=== PATIENT | female | born 1995 | race Caucasian/White ===

== ENCOUNTER 2021-07-04 15:33 | Emergency (ER) | payer OTHER, MEDICAID, SELFPAY ==
[2021-07-04] VITALS (15 sets, daily range): BP systolic 112–172; BP diastolic 53–97; PULSE 68–129; RESP 14–163; TEMP 36.9; O2SAT 95–100; BMI 36.4
--- NOTE | 2021-07-04 15:45 | ED.CHESTPAIN ---
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 She states it is worse when she moves and when she takes a deep breath, radiates only across the front of her chest and starts on the right and goes to the left. It makes her feel short of breath and anxious. She is dizzy and lightheaded. She denies any history of cancer, blood clots or recent long-distance travel. She states she has been having trouble with pain in her left back that goes into her left leg for quite some time and has been seen and evaluated by vascular surgery and has an appointment tomorrow, but has been told she needs a stent. This pain is persistent and consistent with how it has been for quite some time Related Data Home Medications Medication Instructions Recorded Confirmed albuterol sulfate 90 mcg/actuation 2 puff INHALATION Q4-6H PRN 06/12/21 06/12/21 aerosol inhaler fluticasone propionate 220 1 puff INHALATION BID 06/12/21 06/12/21 mcg/actuation HFA aerosol inhaler (Flovent HFA) furosemide 20 mg tablet 20 mg PO DAILY 06/12/21 meloxicam 15 mg tablet 15 mg PO DAILY 06/12/21 potassium chloride 10 mEq 10 meq PO DAILY 06/12/21 06/12/21 capsule,extended release sertraline 100 mg tablet 100 mg PO DAILY 06/12/21 Allergies Allergy/AdvReac Type Severity Reaction Status Date / Time ciprofloxacin Allergy Severe Anaphylaxis Verified 07/04/21 15:52 Penicillins Allergy Severe anaphylaxis Verified 07/04/21 15:52 duloxetine AdvReac Severe neurologica Verified 07/04/21 15:52 l Review of Systems <Devon Casas DO - Last Filed: 07/05/21 08:35> Review of Systems Narrative: GENERAL: Denies chills, fatigue, malaise, fever, sweats. HEENT: Denies sinus pain, ear pain, sore throat, difficulty swallowing, dizziness. RESPIRATORY: Denies dyspnea, cough, wheezing, hemoptysis, sputum. CARDIOVASCULAR: See HPI GASTROINTESTINAL: Denies nausea, vomiting, abdominal pain, diarrhea, constipation, melena. : Denies dysuria, frequency, incontinence, hematuria, urinary retention. MUSCULOSKELETAL: CH SKIN: Denies rash, skin lesions, or other NEUROLOGIC: Denies weakness, headache, numbness, change in speech, confusion, seizures, incoordination. PSYCHIATRIC: No concerning psychosocial issues. 12 point review of systems is negative except for those stated above Patient History <Devon Casas DO - Last Filed: 07/05/21 08:35> Medical History Eustachian tube dysfunction Social History Smoking Status: Current every day smoker Smoking Status: Current every day smoker Exam <Devon Casas DO - Last Filed: 07/05/21 08:35> Narrative Exam Narrative: GENERAL: [25] year old patient appears stated age. Well-developed patient, in mild distress. Anxious, poor historian HEAD: Atraumatic. Normocephalic. EYES: Pupils equal round and reactive. Extraocular motions intact. No scleral icterus. No injection or drainage. ENT: Nose without bleeding, purulent drainage. Throat without erythema, tonsillar hypertrophy or exudate. Airway patent. NECK: Trachea midline. Non tender CARDIOVASCULAR: Regular rate and rhythm without murmurs, gallops, or rubs. Minimally increased symptoms with palpation RESPIRATORY: Clear to auscultation. Breath sounds equal bilaterally. No wheezes, rales, or rhonchi. GASTROINTESTINAL: Abdomen soft, non-tender, nondistended. EXTREMITIES: No edema or joint tenderness. BACK: Nontender without deformity or crepitance. No flank tenderness. NEURO: AOx3. SKIN: No rash or erythema of visible areas Initial Vital Signs Initial Vital Signs: Vital Signs Temperature 98.5 F 07/04/21 15:47 Pulse Rate 82 07/04/21 15:47 Respiratory Rate 18 07/04/21 15:47 Blood Pressure 157/80 H 07/04/21 15:47 Pulse Oximetry 95 07/04/21 15:47 <William Wisdom DO - Last Filed: 07/04/21 21:19> Initial Vital Signs Initial Vital Signs: Vital Signs Temperature 98.5 F 07/04/21 15:47 Pulse Rate 82 07/04/21 15:47 Respiratory Rate 18 07/04/21 15:47 Blood Pressure 157/80 H 07/04/21 15:47 Pulse Oximetry 95 07/04/21 15:47 Course <Devon Casas DO - Last Filed: 07/05/21 08:35> Orders Ordered: Discontinued Medications Diphenhydramine HCl (Diphenhydramine 50 Mg/Ml Vial) 25 mg IV NOW ONE Stop: 07/04/21 19:01 Last Admin: 07/04/21 19:07 Dose: 25 mg Documented by: JOAQUINA Epinephrine HCl (Epinephrine 1 Mg/Ml) 0.5 mg IM NOW ONE Stop: 07/04/21 19:03 Last Admin: 07/04/21 19:08 Dose: 0.5 mg Documented by: JOAQUINA Hydromorphone HCl (Hydromorphone 0.5 Mg Inj) 0.5 mg IV NOW ONE Stop: 07/04/21 16:59 Last Admin: 07/04/21 17:39 Dose: 0.5 mg Documented by: JOAQUINA Sodium Chloride (Normal Saline 0.9%) 1,000 mls @ 125 mls/hr IV CONT OPAL Last Infusion: 07/04/21 21:28 Dose: 0 mls/hr Documented by: Admin: 07/04/21 16:58 Dose: 125 mls/hr Documented by: ANAYA Ketorolac Tromethamine (Ketorolac 30 Mg/Ml Vial) 15 mg IV NOW ONE Stop: 07/04/21 18:40 Last Admin: 07/04/21 18:58 Dose: 15 mg Documented by: JOAQUINA Methylprednisolone (Methylprednisolone 125 Mg/2 Ml Vial) 125 mg IV NOW ONE Stop: 07/04/21 19:01 Last Admin: 07/04/21 19:08 Dose: 125 mg Documented by: JOAQUINA Vital Signs Vital signs: Vital Signs - 8 hr 07/04/21 15:47 07/04/21 16:16 07/04/21 16:30 Temperature 98.5 F Pulse Rate 82 68 74 Respiratory Rate 18 30 H 29 H Blood Pressure 157/80 H Pulse Oximetry 95 100 99 07/04/21 17:00 07/04/21 17:03 07/04/21 17:30 Temperature Pulse Rate 118 H 69 83 Respiratory Rate 31 H 32 H Blood Pressure 136/81 146/89 H Pulse Oximetry 100 99 07/04/21 18:00 07/04/21 18:30 07/04/21 19:00 Temperature Pulse Rate 73 81 123 H Respiratory Rate 15 14 163 H Blood Pressure 134/75 133/74 Pulse Oximetry 97 98 98 07/04/21 19:01 07/04/21 19:30 07/04/21 19:31 Temperature Pulse Rate 129 H 89 95 H Respiratory Rate 43 H 28 H 29 H Blood Pressure 172/97 H 129/62 Pulse Oximetry 97 96 97 07/04/21 20:00 07/04/21 20:30 Temperature Pulse Rate 95 H 89 Respiratory Rate 23 21 Blood Pressure 132/60 112/53 L Pulse Oximetry 96 95 <William Wisdom DO - Last Filed: 07/04/21 21:19> Orders Ordered: Discontinued Medications Diphenhydramine HCl (Diphenhydramine 50 Mg/Ml Vial) 25 mg IV NOW ONE Stop: 07/04/21 19:01 Last Admin: 07/04/21 19:07 Dose: 25 mg Documented by: JOAQUINA Epinephrine HCl (Epinephrine 1 Mg/Ml) 0.5 mg IM NOW ONE Stop: 07/04/21 19:03 Last Admin: 07/04/21 19:08 Dose: 0.5 mg Documented by: JOAQUINA Hydromorphone HCl (Hydromorphone 0.5 Mg Inj) 0.5 mg IV NOW ONE Stop: 07/04/21 16:59 Last Admin: 07/04/21 17:39 Dose: 0.5 mg Documented by: JOAQUINA Sodium Chloride (Normal Saline 0.9%) 1,000 mls @ 125 mls/hr IV CONT OPAL Last Infusion: 07/04/21 21:28 Dose: 0 mls/hr Documented by: Admin: 07/04/21 16:58 Dose: 125 mls/hr Documented by: ANAYA Ketorolac Tromethamine (Ketorolac 30 Mg/Ml Vial) 15 mg IV NOW ONE Stop: 07/04/21 18:40 Last Admin: 07/04/21 18:58 Dose: 15 mg Documented by: JOAQUINA Methylprednisolone (Methylprednisolone 125 Mg/2 Ml Vial) 125 mg IV NOW ONE Stop: 07/04/21 19:01 Last Admin: 07/04/21 19:08 Dose: 125 mg Documented by: JOAQUINA Vital Signs Vital signs: Vital Signs - 8 hr 07/04/21 15:47 07/04/21 16:16 07/04/21 16:30 Temperature 98.5 F Pulse Rate 82 68 74 Respiratory Rate 18 30 H 29 H Blood Pressure 157/80 H Pulse Oximetry 95 100 99 07/04/21 17:00 07/04/21 17:03 07/04/21 17:30 Temperature Pulse Rate 118 H 69 83 Respiratory Rate 31 H 32 H Blood Pressure 136/81 146/89 H Pulse Oximetry 100 99 07/04/21 18:00 07/04/21 18:30 07/04/21 19:00 Temperature Pulse Rate 73 81 123 H Respiratory Rate 15 14 163 H Blood Pressure 134/75 133/74 Pulse Oximetry 97 98 98 07/04/21 19:01 07/04/21 19:30 07/04/21 19:31 Temperature Pulse Rate 129 H 89 95 H Respiratory Rate 43 H 28 H 29 H Blood Pressure 172/97 H 129/62 Pulse Oximetry 97 96 97 07/04/21 20:00 07/04/21 20:30 Temperature Pulse Rate 95 H 89 Respiratory Rate 23 21 Blood Pressure 132/60 112/53 L Pulse Oximetry 96 95 MDM - Chest Pain <Devon Casas DO - Last Filed: 07/05/21 08:35> Lab Data Result diagrams: 07/04/21 15:53 07/04/21 15:53 Labs: Lab Results 07/04/21 07/04/21 07/04/21 Range/Units 15:53 15:53 15:53 WBC 9.4 (4.5-11.0) X10^3/uL RBC 4.43 (4.0-5.2) X10^6/uL Hgb 13.4 (12.0-16.0) g/dL Hct 38.5 (36-46) % MCV 87.1 (80-100) fL MCH 30.2 (26-34) PG MCHC 34.7 (30-36) % RDW 13.4 (11.6-14.8) % Plt Count 353 (150-400) X10^3/uL Neut % (Auto) 57.2 (50-75) % Lymph % (Auto) 28.2 (25-40) % [place] % (Auto) 8.0 (3-14) % Eos % (Auto) 5.3 H (2-4) % Baso % (Auto) 1.3 (0-2) % Neut # (Auto) 5400 (3892-9818) /uL Lymph # (Auto) 2700 (5963-1606) /uL [place] # (Auto) 800 (0-900) /uL Eos # (Auto) 500 H (0-450) /uL Baso # (Auto) 100 (0-100) /uL PT 10.2 (10.1-12.7) SECONDS INR 0.9 (0.9-1.3) APTT 32 (26.4-36.2) SECONDS Sodium 138 (137-145) mmol/L Potassium 4.2 (3.4-5.1) mmol/L Chloride 105 (98-107) mmol/L Carbon Dioxide 25 (22-32) mmol/L BUN 14 (7-17) mg/dL Creatinine 0.76 (0.52-1.04) mg/dL Estimated GFR > 60.0 (>60) mL/min BUN/Creatinine Ratio 18.4 (6-22) Glucose 90 (70-100) mg/dL Lactate (0.7-2.1) mmol/L Calcium 9.3 (8.4-10.2) mg/dL Magnesium 2.1 (1.6-2.3) mg/dL Total Bilirubin 0.3 (0.2-1.3) mg/dL AST 30 (14-36) IU/L ALT 21 (<35) IU/L Alkaline Phosphatase 87 (38-126) U/L Total Creatine Kinase 133 (30-135) U/L CK-MB (CK-2) 1.11 (<2.37) ng/mL CK-MB (CK-2) Rel Index 0.8 L (1.5-5.0) % Troponin I < 0.012 (0.01-0.034) ng/mL Total Protein 7.6 (6.3-8.2) g/dL Albumin 4.4 (3.5-5.0) g/dL Globulin 3.2 (1.7-4.1) g/dL Albumin/Globulin Ratio 1.4 (1.0-2.8) Lipase 77 (23-300) U/L 07/04/ Range/Units 15:53 WBC (4.5-11.0) X10^3/uL RBC (4.0-5.2) X10^6/uL Hgb (12.0-16.0) g/dL Hct (36-46) % MCV (80-100) fL MCH (26-34) PG MCHC (30-36) % RDW (11.6-14.8) % Plt Count (150-400) X10^3/uL Neut % (Auto) (50-75) % Lymph % (Auto) (25-40) % [place] % (Auto) (3-14) % Eos % (Auto) (2-4) % Baso % (Auto) (0-2) % Neut # (Auto) (3054-7223) /uL Lymph # (Auto) (5125-3867) /uL [place] # (Auto) (0-900) /uL Eos # (Auto) (0-450) /uL Baso # (Auto) (0-100) /uL PT (10.1-12.7) SECONDS INR (0.9-1.3) APTT (26.4-36.2) SECONDS Sodium (137-145) mmol/L Potassium (3.4-5.1) mmol/L Chloride (98-107) mmol/L Carbon Dioxide (22-32) mmol/L BUN (7-17) mg/dL Creatinine (0.52-1.04) mg/dL Estimated GFR (>60) mL/min BUN/Creatinine Ratio (6-22) Glucose (70-100) mg/dL Lactate 1.0 (0.7-2.1) mmol/L Calcium (8.4-10.2) mg/dL Magnesium (1.6-2.3) mg/dL Total Bilirubin (0.2-1.3) mg/dL AST (14-36) IU/L ALT (<35) IU/L Alkaline Phosphatase (38-126) U/L Total Creatine Kinase (30-135) U/L CK-MB (CK-2) (<2.37) ng/mL CK-MB (CK-2) Rel Index (1.5-5.0) % Troponin I (0.01-0.034) ng/mL Total Protein (6.3-8.2) g/dL Albumin (3.5-5.0) g/dL Globulin (1.7-4.1) g/dL Albumin/Globulin Ratio (1.0-2.8) Lipase (23-300) U/L <William Wisdom, DO - Last Filed: 07/04/21 21:19> Lab Data Labs: Lab Results 07/04/21 07/04/21 07/04/21 Range/Units 15:53 15:53 15:53 WBC 9.4 (4.5-11.0) X10^3/uL RBC 4.43 (4.0-5.2) X10^6/uL Hgb 13.4 (12.0-16.0) g/dL Hct 38.5 (36-46) % MCV 87.1 (80-100) fL MCH 30.2 (26-34) PG MCHC 34.7 (30-36) % RDW 13.4 (11.6-14.8) % Plt Count 353 (150-400) X10^3/uL Neut % (Auto) 57.2 (50-75) % Lymph % (Auto) 28.2 (25-40) % [place] % (Auto) 8.0 (3-14) % Eos % (Auto) 5.3 H (2-4) % Baso % (Auto) 1.3 (0-2) % Neut # (Auto) 5400 (0601-0769) /uL Lymph # (Auto) 2700 (1109-9809) /uL [place] # (Auto) 800 (0-900) /uL Eos # (Auto) 500 H (0-450) /uL Baso # (Auto) 100 (0-100) /uL PT 10.2 (10.1-12.7) SECONDS INR 0.9 (0.9-1.3) APTT 32 (26.4-36.2) SECONDS Sodium 138 (137-145) mmol/L Potassium 4.2 (3.4-5.1) mmol/L Chloride 105 (98-107) mmol/L Carbon Dioxide 25 (22-32) mmol/L BUN 14 (7-17) mg/dL Creatinine 0.76 (0.52-1.04) mg/dL Estimated GFR > 60.0 (>60) mL/min BUN/Creatinine Ratio 18.4 (6-22) Glucose 90 (70-100) mg/dL Lactate (0.7-2.1) mmol/L Calcium 9.3 (8.4-10.2) mg/dL Magnesium 2.1 (1.6-2.3) mg/dL Total Bilirubin 0.3 (0.2-1.3) mg/dL AST 30 (14-36) IU/L ALT 21 (<35) IU/L Alkaline Phosphatase 87 (38-126) U/L Total Creatine Kinase 133 (30-135) U/L CK-MB (CK-2) 1.11 (<2.37) ng/mL CK-MB (CK-2) Rel Index 0.8 L (1.5-5.0) % Troponin I < 0.012 (0.01-0.034) ng/mL Total Protein 7.6 (6.3-8.2) g/dL Albumin 4.4 (3.5-5.0) g/dL Globulin 3.2 (1.7-4.1) g/dL Albumin/Globulin Ratio 1.4 (1.0-2.8) Lipase 77 (23-300) U/L // Range/Units 15:53 WBC (4.5-11.0) X10^3/uL RBC (4.0-5.2) X10^6/uL Hgb (12.0-16.0) g/dL Hct (36-46) % MCV (80-100) fL MCH (26-34) PG MCHC (30-36) % RDW (11.6-14.8) % Plt Count (150-400) X10^3/uL Neut % (Auto) (50-75) % Lymph % (Auto) (25-40) % [place] % (Auto) (3-14) % Eos % (Auto) (2-4) % Baso % (Auto) (0-2) % Neut # (Auto) (4859-2403) /uL Lymph # (Auto) (1687-3945) /uL [place] # (Auto) (0-900) /uL Eos # (Auto) (0-450) /uL Baso # (Auto) (0-100) /uL PT (10.1-12.7) SECONDS INR (0.9-1.3) APTT (26.4-36.2) SECONDS Sodium (137-145) mmol/L Potassium (3.4-5.1) mmol/L Chloride (98-107) mmol/L Carbon Dioxide (22-32) mmol/L BUN (7-17) mg/dL Creatinine (0.52-1.04) mg/dL Estimated GFR (>60) mL/min BUN/Creatinine Ratio (6-22) Glucose (70-100) mg/dL Lactate 1.0 (0.7-2.1) mmol/L Calcium (8.4-10.2) mg/dL Magnesium (1.6-2.3) mg/dL Total Bilirubin (0.2-1.3) mg/dL AST (14-36) IU/L ALT (<35) IU/L Alkaline Phosphatase (38-126) U/L Total Creatine Kinase (30-135) U/L CK-MB (CK-2) (<2.37) ng/mL CK-MB (CK-2) Rel Index (1.5-5.0) % Troponin I (0.01-0.034) ng/mL Total Protein (6.3-8.2) g/dL Albumin (3.5-5.0) g/dL Globulin (1.7-4.1) g/dL Albumin/Globulin Ratio (1.0-2.8) Lipase (23-300) U/L Imaging Data CT angio: Radiologist's Impression: [address] [address] [address] Scan Report Signed Patient: Queta eHrron MR#: [id number] : 1995 Acct:[id number] Age/Sex: 25 / F Date of Service: 07/04/21 Loc: ED Accession Number: [id number] ?? Procedure: CT angio abd aorta runoff Ordering Provider: Eugene,Devon D.O. PROCEDURE:? CT ANGIO ABD AORTA RUNOFF ? INDICATIONS:? severe R leg pain, known vascular disease ? TECHNIQUE:? After the administration of intravenous contrast, 2.5 mm sections acquired from T12 to the feet, with optional delayed image acquisition from the knees to the feet.? 3-dimensional maximum intensity projection (MIP) coronal and sagittal reformats, and/or 3-dimensional volume rendering reformatting was then performed.? For radiation dose reduction, the following was used:? automated exposure control.? ? COMPARISON:? None. ? FINDINGS:? Image quality:? Excellent.? ? Image quality:? Excellent.? ? Lung bases:? Lung bases are clear.? Heart size is normal. ? Solid organs:? Liver: The liver has no mass or intrahepatic biliary ductal dilatation. The portal vein and hepatic veins are patent. Biliary: The gallbladder has no gallstones, pericholecystic fluid, gallbladder wall thickening, or surrounding inflammatory change. Pancreas: The pancreas has no mass or ductal dilatation. There is no surrounding inflammation. Spleen: Normal size. There are no masses. Adrenals: No hypertrophy or nodules. Kidneys: No obstructive calculus or hydronephrosis.? No solid mass. No cystic mass. ? Peritoneum and bowel:? The distal esophagus and stomach are normal.? The small bowel has a normal caliber and appearance. The terminal ileum is normal. The large bowel has a normal caliber and appearance.? The appendix is normal. No free fluid or air.? ? Nodes and vessels:? No retroperitoneal or mesenteric adenopathy by size criteria.? Aorta and inferior vena cava are normal in size.? ? Miscellaneous:? No abdominal wall mass or hernia. ? PELVIS:? Genitourinary:? The bladder has no wall thickening or mass. No bladder calcifications. ? Miscellaneous:? No inguinal hernias or adenopathy.? ? Bones:? Mild disc bulge of L5-S1 with no significant foraminal or central canal stenosis identified.? No suspicious bony lesions.? No vertebral body compression fractures.? ? Abdominal aorta:? The aorta has a normal caliber with no atherosclerotic disease, no aneurysm, and no dissection.? The mesenteric arteries and renal arteries are widely patent.? Both common, internal, and external iliac arteries are patent.? ? Right lower extremity:? The right CASTING MACHINE OPERATOR, PFA, SFA, and popliteal artery are patent.? The infrapopliteal arteries are not well opacified due to bolus timing but are grossly patent. ? Left lower extremity:? The left CASTING MACHINE OPERATOR, PFA, SFA, and popliteal artery are patent.? The infrapopliteal arteries are not well opacified due to bolus timing but are grossly patent patent. ? IMPRESSION:? Normal CT angiogram of the aorta and bilateral lower extremities. ? ? Dictated by: Slick Dorman M.D. on 07/04/2021 at 19:26 ? ? Approved by: Slick Dorman M.D. on 07/04/2021 at 19:34?? MDM Narrative Medical decision making narrative: Dr Wisdom: Received turned over. Reviewed patient's history and physical and labs. Ultrasound shows no signs of DVT. CTA shows no issues with vasculature of her bilateral lower extremities. When she returned from the CT scan with contrast she ran her call [place]. She was having problems breathing. Was never hypoxic. Her lungs were clear. She was tachypneic and also tachycardic. She states that she was having some nausea. She has never had allergic reaction in the past to contrast dye. She has had multiple CT scans in the past. She was given Benadryl and Solu-Medrol and also epinephrine. The seem to help her symptoms. There is also a very high chance that this was anxiety induced is well. I had a discussion with her regarding this. I informed her that there is the potential that she had a reaction to the contrast dye. She expressed understanding of this. There does not appear to be any emergent condition. No signs of infection. No signs of DVT. No signs of arterial occlusion. No signs of fracture. Will discharge home. She was given strict return precautions and follow-up instructions. She expressed understanding and agreement. <William Wisdom, DO - Last Filed: 07/04/21 21:19> Critical Care Time Critical Care Time: Yes Total Critical Care Time: 35 Attestation: The high probability of a clinically significant, sudden or life threatening deterioration of the respiratory, cardiovascular system(s) required my full and direct attention, intervention and personal management. The aggregate critical care time was 35 minutes. This time is in addition to time spent performing reported procedures but includes the following: [] Data Review and interpretation [x] Patient assessment and monitoring of vital signs [x] Documentation [x] Medication orders and management Discharge Plan Departure Patient Disposition: Home Clinical Impression: Pain in right leg, Allergic reaction Activity Restrictions/Additional Instructions: Although we cannot be 100% sure I do have some concern that you had allergic reaction to the IV contrast dye that you were given with your CT scan today. If you ever received a CT scan in the future please inform the provider that she have had a reaction in the past that you can be premedicated. Continue to keep all of her scheduled medical appointments especially the appointment with your vascular surgeon tomorrow. Contact your primary doctor for a follow-up. Return to the emergency department for any new or worsening symptoms Prescriptions: No Action meloxicam 15 mg tablet 15 mg PO DAILY RF: 0 sertraline 100 mg tablet 100 mg PO DAILY RF: 0 furosemide 20 mg tablet 20 mg PO DAILY RF: 0 albuterol sulfate 90 mcg/actuation HFA aerosol inhaler 2 puff inhalation Q4-6H PRNRF: 0 Flovent HFA 220 mcg/actuation HFA aerosol inhaler 1 puff inhalation BID RF: 0 potassium chloride 10 mEq capsule, extended release 10 meq PO DAILY RF: 0 Referrals: Miscellaneous,Doctor, [Primary Care Provider] -
[2021-07-04 15:59] LABS: Add Manual Diff / Slide Review NO; Basophils Absolute Auto 100 /uL (0-100); Basophils Percent Auto 1.3 % (0-2); Eosinophils Absolute Auto 500 /uL (0-450); Eosinophils Percent Auto 5.3 % (2-4); Hematocrit 38.5 % (36-46); Hemoglobin 13.4 g/dL (12.0-16.0); Lymphocytes Absolute Auto 2700 /uL (1100-4500); Lymphocytes Percent Auto 28.2 % (25-40); Mean Corpuscular HGB Conc 34.7 % (30-36); Mean Corpuscular Hemoglobin 30.2 PG (26-34); Mean Corpuscular Volume 87.1 fL (80-100); Monocytes Absolute Auto 800 /uL (0-900); Neutrophils Absolute Auto 5400 /uL (1500-7000); Neutrophils Percent Auto 57.2 % (50-75); Platelet Count 353 X10^3/uL (150-400); Red Blood Cell Count 4.43 X10^6/uL (4.0-5.2); Red Cell Distribution Width 13.4 % (11.6-14.8); White Blood Cell Count 9.4 X10^3/uL (4.5-11.0)
[2021-07-04 16:07] LABS: INR 0.9 (0.9-1.3); Prothrombin Time 10.2 SECONDS (10.1-12.7)
[2021-07-04 16:10] LABS: PTT Partial Thromboplastin Tim 32 SECONDS (26.4-36.2)
[2021-07-04 16:13] LABS: Alanine Aminotransferase 21 IU/L (<35); Albumin 4.4 g/dL (3.5-5.0); Albumin Globulin Ratio 1.4 (1.0-2.8); Alkaline Phosphatase 87 U/L (38-126); Aspartate Aminotransferase 30 IU/L (14-36); BUN Creatinine Ratio 18.4 (6-22); Bilirubin Total 0.3 mg/dL (0.2-1.3); Blood Urea Nitrogen 14 mg/dL (7-17); Calcium 9.3 mg/dL (8.4-10.2); Carbon Dioxide 25 mmol/L (22-32); Chloride 105 mmol/L (98-107); Creatine Kinase 133 U/L (30-135); Estimated Glomerular Filt Rate > 60.0 mL/min (>60); Globulin 3.2 g/dL (1.7-4.1); Glucose 90 mg/dL (70-100); HEMOLYSIS 20 (0-50); Lipase 77 U/L (23-300); Magnesium 2.1 mg/dL (1.6-2.3); Potassium 4.2 mmol/L (3.4-5.1); Sodium 138 mmol/L (137-145); Total Protein 7.6 g/dL (6.3-8.2)
[2021-07-04 16:24] LABS: Troponin I < 0.012 ng/mL (0.01-0.034)
[2021-07-04 16:27] LABS: CKMB % Relative Index 0.8 % (1.5-5.0); Creatine Kinase MB 1.11 ng/mL (<2.37)
[2021-07-04] MEDS: SODIUM CHLORIDE 0.9% 1,000 ML 125 ML IV (16:58)
--- NOTE | 2021-07-04 16:58 | DI.US.S_ITS ---
PROCEDURE: US PERIPH VENOUS LOW EXTREM RT INDICATIONS: MEDIAL THIGH PAIN TECHNIQUE: Real-time imaging, as well as color and pulse Doppler interrogation, were performed of the lower extremity deep veins from the inguinal ligament to the popliteal fossa. COMPARISON: None. FINDINGS: The common femoral, femoral and popliteal veins are normally compressible, and free of intraluminal thrombus. Color and pulse Doppler demonstrate normal phasic intraluminal flow. There is normal augmentation response to distal compression maneuver. IMPRESSION: Negative for deep venous thrombosis. Dictated by: Jose G Chiu M.D. on 07/04/2021 at 16:38 Approved by: Jose G Chiu M.D. on 07/04/2021 at 16:38
[2021-07-04] MEDS: HYDROMORPHONE 0.5 MG INJ IV (17:39)
--- NOTE | 2021-07-04 18:29 | DI.CT.S_ITS ---
PROCEDURE: CT ANGIO ABD AORTA RUNOFF INDICATIONS: severe R leg pain, known vascular disease TECHNIQUE: After the administration of intravenous contrast, 2.5 mm sections acquired from T12 to the feet, with optional delayed image acquisition from the knees to the feet. 3-dimensional maximum intensity projection (MIP) coronal and sagittal reformats, and/or 3-dimensional volume rendering reformatting was then performed. For radiation dose reduction, the following was used: automated exposure control. COMPARISON: None. FINDINGS: Image quality: Excellent. Image quality: Excellent. Lung bases: Lung bases are clear. Heart size is normal. Solid organs: Liver: The liver has no mass or intrahepatic biliary ductal dilatation. The portal vein and hepatic veins are patent. Biliary: The gallbladder has no gallstones, pericholecystic fluid, gallbladder wall thickening, or surrounding inflammatory change. Pancreas: The pancreas has no mass or ductal dilatation. There is no surrounding inflammation. Spleen: Normal size. There are no masses. Adrenals: No hypertrophy or nodules. Kidneys: No obstructive calculus or hydronephrosis. No solid mass. No cystic mass. Peritoneum and bowel: The distal esophagus and stomach are normal. The small bowel has a normal caliber and appearance. The terminal ileum is normal. The large bowel has a normal caliber and appearance. The appendix is normal. No free fluid or air. Nodes and vessels: No retroperitoneal or mesenteric adenopathy by size criteria. Aorta and inferior vena cava are normal in size. Miscellaneous: No abdominal wall mass or hernia. PELVIS: Genitourinary: The bladder has no wall thickening or mass. No bladder calcifications. Miscellaneous: No inguinal hernias or adenopathy. Bones: Mild disc bulge of L5-S1 with no significant foraminal or central canal stenosis identified. No suspicious bony lesions. No vertebral body compression fractures. Abdominal aorta: The aorta has a normal caliber with no atherosclerotic disease, no aneurysm, and no dissection. The mesenteric arteries and renal arteries are widely patent. Both common, internal, and external iliac arteries are patent. Right lower extremity: The right ROLL PLUGGER MACHINE OPERATOR, PFA, SFA, and popliteal artery are patent. The infrapopliteal arteries are not well opacified due to bolus timing but are grossly patent. Left lower extremity: The left ROLL PLUGGER MACHINE OPERATOR, PFA, SFA, and popliteal artery are patent. The infrapopliteal arteries are not well opacified due to bolus timing but are grossly patent patent. IMPRESSION: Normal CT angiogram of the aorta and bilateral lower extremities. Dictated by: Slick Dorman M.D. on 07/04/2021 at 19:26 Approved by: Slick Dorman M.D. on 07/04/2021 at 19:34
--- NOTE | 2021-07-04 18:33 | PC.NURSE ---
patient has multiple complaints but is here today for pain in her right leg/ groin.
[2021-07-04] MEDS: KETOROLAC 30 MG/ML VIAL 15 MG IV (18:58)
[2021-07-04] MEDS: diphenhydrAMINE 50 MG/ML VIAL 25 MG IV (19:07)
[2021-07-04] MEDS: EPINEPHrine 1 MG/ML 0.5 MG IM (19:08)
[2021-07-04] MEDS: methylPREDNISolone 125 MG/2 ML VIAL IV (19:08)
--- NOTE | 2021-07-04 19:09 | PC.NURSE ---
patient came back from Ct and alerted me by the call light. She appeared in distress, was choking, tachypnic, and tearful. She appeared to be struggling to swallow. MD was immediately notified and assessed. The emergency allergy kit was accessed and meds were order as per MD verbal order. The patient returned to her normal base line within 5 minutes.
== END 2021-07-04 21:28 | disposition home or self-care (01) ==
PROVIDERS: Emergency Medicine; Emergency Provider Emergency Medicine
DX: M79.604 Pain in right leg (principal); T78.40XA Allergy, unspecified, initial encounter; R06.02 Shortness of breath; R42 Dizziness and giddiness; F41.9 Anxiety disorder, unspecified; R09.02 Hypoxemia; R00.0 Tachycardia, unspecified
CPT/HCPCS: 36415; 75635; 80053; 82550; 82553; 83605; 83690; 83735; 84484; 85025; 85610; 85730; 93005; 93971; 96361; 96372; 96374; 96375; 99284; 99291; J0171; J1170; J1200; J1885; J2930; Q9967

== ENCOUNTER 2021-11-14 02:46 | Emergency (ER) | payer OTHER, MEDICAID, SELFPAY ==
[2021-11-14 02:45] VITALS: BP 112/56; PULSE 71; RESP 15; O2SAT 99; BMI 33.7
--- NOTE | 2021-11-14 03:17 | DI.RAD.S_ITS ---
PROCEDURE: XR WRIST RT MIN 3V INDICATIONS: wrist pain after injury TECHNIQUE: 4 views of the wrist were acquired. COMPARISON: None. FINDINGS: Bones: No fractures or dislocations. Incidental note made of benign cystic lesion of the lunate. Scaphoid view: Scaphoid intact Soft tissues: No suspicious soft tissue calcifications. IMPRESSION: No evidence acute bony abnormality of the right wrist. Comment: Final report is concordant with preliminary interpretation provided by [facility]. If clinical suspicion and/or symptoms persist, further assessment with repeat plain films, or advanced imaging (e.g., CT, MRI, or bone scan) may be helpful for further assessment. Dictated by: Tono Mckeon M.D. on 11/14/2021 at 6:16 Approved by: Tono Mkceon M.D. on 11/14/2021 at 6:19
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
[2021-11-14 03:22] VITALS: TEMP 36.7
[2021-11-14 04:00] VITALS: BP 113/74; PULSE 80; RESP 18; O2SAT 99
[2021-11-14 04:30] VITALS: BP 93/54; PULSE 82; RESP 18; O2SAT 99
== END 2021-11-14 04:45 | disposition home or self-care (01) ==
PROVIDERS: Emergency Provider Emergency Medicine
DX: S00.12XA Contusion of left eyelid and periocular area, initial encounter (principal); S60.211A Contusion of right wrist, initial encounter; Y09 Assault by unspecified means
CPT/HCPCS: 73110; 81003; 81025; 99283

== ENCOUNTER 2022-02-22 22:25 | Emergency (ER) | payer OTHER, MEDICAID, SELFPAY ==
[2022-02-22 22:32] VITALS: BP 155/86; PULSE 78; RESP 22; TEMP 36.4; O2SAT 97; BMI 33.4
--- NOTE | 2022-02-22 23:24 | ED_ITS ---
HPI - Back Pain/Injury General Chief Complaint: Back Pain/Injury Stated Complaint: abd/ back pain Time Seen by Provider: 02/22/22 23:18 Source: patient Mode of arrival: Ambulatory Limitations: no limitations History of Present Illness HPI Narrative: Patient is a 26-year-old female here for evaluation of less than 12 hours of right-sided abdominal pain and right lower quadrant abdominal pain and right flank pain. No urinary symptoms. No change in the symptoms with urinating. No change in bowel habits. Has not had a bowel movement since the onset of the symptoms. No vaginal symptoms. No fevers. No nausea vomiting. No skin changes. Is somewhat worse with palpation. Related Data Home Medications Medication Instructions Recorded Confirmed albuterol sulfate 90 mcg/actuation 2 puff inhalation Q4-6H PRN 06/12/21 06/12/21 aerosol inhaler fluticasone propionate 220 1 puff inhalation BID 06/12/21 06/12/21 mcg/actuation HFA aerosol inhaler (Flovent HFA) furosemide 20 mg tablet 20 mg PO DAILY 06/12/21 meloxicam 15 mg tablet 15 mg PO DAILY 06/12/21 potassium chloride 10 mEq 10 meq PO DAILY 06/12/21 06/12/21 capsule,extended release sertraline 100 mg tablet 100 mg PO DAILY 06/12/21 Allergies Allergy/AdvReac Type Severity Reaction Status Date / Time ciprofloxacin Allergy Severe Anaphylaxis Verified 07/04/21 15:52 Penicillins Allergy Severe anaphylaxis Verified 07/04/21 15:52 duloxetine AdvReac Severe neurologica Verified 07/04/21 15:52 l Review of Systems Review of Systems ROS Unobtainable: All systems reviewed & are unremarkable except as noted in HPI and below Constitutional Constitutional: Reports system reviewed and no additional complaints, except as documented Gastrointestinal Gastrointestinal: Reports system reviewed and no additional complaints, except as documented Genitourinary Genitourinary: Reports system reviewed and no additional complaints, except as documented Musculoskeletal Musculoskeletal: Reports system reviewed and no additional complaints, except as documented Integumentary/Breasts Skin/Breast: Reports system reviewed and no additional complaints, except as documented Hematologic/Lymphatic On Anticoagulants: No Patient History Medical History Eustachian tube dysfunction Social History Smoking Status: Current every day smoker Smoking Status: Current every day smoker tobacco type: cigarettes alcohol intake frequency: a few times a week Substance Use Type: does not use Exam Initial Vital Signs Initial Vital Signs: Vital Signs Temperature 97.6 F 02/22/22 22:32 Pulse Rate 78 02/22/22 22:32 Respiratory Rate 22 02/22/22 22:32 Blood Pressure 155/86 H 02/22/22 22:32 Pulse Oximetry 97 02/22/22 22:32 Oxygen Delivery Method 02/22/22 22:32 Const General: cooperative and healthy appearing HENMT Head: normal to inspection and normocephalic Resp Effort & Inspection: normal respiratory effort Auscultation: clear to auscultation bilaterally Cardio Rate: regular rate Rhythm: regular rhythm GI Inspection: normal to inspection Palpation: soft, No guarding and tender (Right-sided abdomen, right lower quadrant) Other: No right adnexal tenderness Back/Spine/Pelvis Back: No CVA tenderness Skin General: no rashes or lesions noted Neuro General: patient alert, patient awake and moves all extremities Extrem General: normal to inspection and capillary refill normal Psych Appearance: grossly normal Course Orders Ordered: ED Orders 02/22/22 23:25 CT abdomen pelvis w con Stat 02/22/22 23:44 Complete Blood Count AUTO DIFF Stat Comprehensive Metabolic Panel Stat Lipase Stat Discontinued Medications Diphenhydramine HCl (Diphenhydramine 50 Mg/Ml Vial) 25 mg IV NOW ONE Stop: 02/23/22 00:11 Last Admin: 02/23/22 00:17 Dose: 25 mg Documented By: OW Sodium Chloride (Normal Saline 0.9%) 1,000 mls @ 1,000 mls/hr IV BOLUS ONE Stop: 02/23/22 00:23 Last Infusion: 02/23/22 00:45 Dose: 0 mls/hr Documented By: Admin: 02/22/22 23:42 Dose: 1,000 mls/hr Documented By: OW Methylprednisolone (Methylprednisolone 125 Mg/2 Ml Vial) 125 mg IV NOW ONE Stop: 02/23/22 00:11 Last Admin: 02/23/22 00:16 Dose: 125 mg Documented By: OW Morphine Sulfate (Morphine 4 Mg/Ml Inj) 4 mg IV NOW ONE Stop: 02/22/22 23:25 Last Admin: 02/22/22 23:43 Dose: 4 mg Documented By: NINFA Ondansetron HCl (Ondansetron 4 Mg/2 Ml Inj) 4 mg IV NOW ONE Stop: 02/22/22 23:25 Last Admin: 02/22/22 23:42 Dose: 4 mg Documented By: NINFA Vital Signs Vital signs: Vital Signs - 8 hr 02/22/22 22:32 02/23/22 00:00 02/23/22 00:30 Temperature 97.6 F Pulse Rate 78 65 80 Respiratory Rate 22 18 18 Blood Pressure 155/86 H 129/81 118/66 Pulse Oximetry 97 98 100 Oxygen Delivery Method Room Air Room Air 02/23/22 01:07 02/23/22 01:30 Temperature 98.1 F Pulse Rate 76 61 Respiratory Rate 18 18 Blood Pressure 130/79 119/69 Pulse Oximetry 100 99 Oxygen Delivery Method Room Air MDM - Back Pain/Injury Lab Data Attestation: I reviewed the patient's lab results. Result diagrams: 02/22/22 23:44 02/22/22 23:44 Labs: Lab Results 02/22/22 02/22/22 Range/Units 23:44 23:44 WBC 9.4 (4.5-11.0) X10^3/uL RBC 4.17 (4.0-5.2) X10^6/uL Hgb 12.7 (12.0-16.0) g/dL Hct 36.3 (36-46) % MCV 87.0 (80-100) fL MCH 30.5 (26-34) PG MCHC 35.0 (30-36) % RDW 13.0 (11.6-14.8) % Plt Count 299 (150-400) X10^3/uL Neut % (Auto) 53.9 (50-75) % Lymph % (Auto) 33.5 (25-40) % Ogle % (Auto) 8.2 (3-14) % Eos % (Auto) 3.6 (2-4) % Baso % (Auto) 0.8 (0-2) % Neut # (Auto) 5100 (7346-5491) /uL Lymph # (Auto) 3200 (6524-7430) /uL Ogle # (Auto) 800 (0-900) /uL Eos # (Auto) 300 (0-450) /uL Baso # (Auto) 100 (0-100) /uL Sodium 138 (137-145) mmol/L Potassium 4.1 (3.4-5.1) mmol/L Chloride 107 (98-107) mmol/L Carbon Dioxide 25 (22-32) mmol/L BUN 12 (7-17) mg/dL Creatinine 0.71 (0.52-1.04) mg/dL Estimated GFR > 60 (>60) mL/min BUN/Creatinine Ratio 16.9 (6-22) Glucose 96 (70-100) mg/dL Calcium 8.9 (8.4-10.2) mg/dL Total Bilirubin 0.2 (0.2-1.3) mg/dL AST 22 (14-36) IU/L ALT 13 (<35) IU/L Alkaline Phosphatase 64 (38-126) U/L Total Protein 7.1 (6.3-8.2) g/dL Albumin 3.9 (3.5-5.0) g/dL Globulin 3.2 (1.7-4.1) g/dL Albumin/Globulin Ratio 1.2 (1.0-2.8) Lipase 55 (23-300) U/L Point of Care Testing Test Results Negative Urine Dip Bedside Urine Glucose Negative Bedside Urine Bilirubin - Negative Bedside Urine Ketone - Negative Urine Specific [place] 1.010 Bedside Urine Occult Blood - Negative Bedside Urine pH 6.0 Bedside Urine Protein - Negative Bedside Urine Urobilinogen - Negative Bedside Urine Nitrite - Negative Bedside Urine Leukocytes - Negative Esterase Imaging Data CT scan - abdomen/pelvis: Radiologist's Impression: [address] [address] [address] Scan Report Signed Patient: Queta Herron MR#: [id number] : 1995 Acct:[id number] Age/Sex: 26 / F Date of Service: 02/22/22 Loc: ED Accession Number: [id number] ?? Procedure: CT abdomen pelvis w con Ordering Provider: William Wisdom D.O. PROCEDURE:? CT ABDOMEN PELVIS W CON ? INDICATIONS:? RLQ abd pain eval for appy ? TECHNIQUE:? After the administration of IV contrast, axial sections were acquired from the lung bases to the pubic symphysis.? Coronal and sagittal reformats were performed.? For radiation dose reduction, the following was used:? automated exposure control, adjustment of mA and/or kV according to patient size. ? COMPARISON:? [facility], CT, CT ABDOMEN PELVIS WITH CONTRAST, 07/01/2020, 16:13.? [facility], CT, CT ANGIO ABD AORTA RUNOFF, 07/04/2021, 18:40. ? FINDINGS:? Image quality:? Excellent.? ? Lung bases:? There is mild dependent atelectasis bilaterally are.? ? Heart:? Heart is normal in size. ? ? ABDOMEN: Liver:? No mass lesion. Gallbladder:? Within normal limits without calcified gallstones.? ? Biliary ducts:? No biliary ductal dilatation.? ? Pancreas:? Unremarkable.? ? Spleen:? Normal in size.? ? Adrenal Glands:? No adrenal nodules.? ? Kidneys and Ureters:? No hydronephrosis.? ? ? Stomach and Bowel:? Stomach, small bowel loops, and colon are normal in caliber and wall thickness.? No evidence of appendicitis.? There is colonic diverticulosis without acute diverticulitis.? Peritoneum:? There is a small amount of free fluid in the right hemipelvis which appears within physiologic limits.? No free air.? ? Ventral Wall: ? No hernia.? Abdominal Nodes:? No retroperitoneal or mesenteric adenopathy by size criteria.? Vessels:? Aorta and inferior vena cava are normal in size.? ? PELVIS: Pelvic Organs:? Unremarkable.? ? Bladder:? Unremarkable.? ? Pelvic Nodes: No enlarged lymph nodes.? Miscellaneous: No inguinal hernias are seen. ? ? ? Bones:? Visualized osseous structures demonstrate no suspicious focal lesions. ? IMPRESSION:? 1. No acute intra-abdominal abnormality.? Specifically, no evidence of appendicitis.? ? 2. Colonic? diverticulosis without acute diverticulitis.? ? 3. Small amount of free fluid in the right hemipelvis.? If there is clinical suspicion for pelvic pathology, further evaluation may be obtained with a pelvic ultrasound. ? Dictated by: Kenneth Barahona M.D. on 02/23/2022 at 1:24 ? ? Approved by: Kenneth Barahona M.D. on 02/23/2022 at 1:29?? MDM Narrative Medical decision making narrative: Patient has right lower quadrant abdominal pain. No right adnexal tenderness. No skin changes. No CVA tenderness. CT scan shows no acute intra-abdominal pathology. No fevers. No urinary symptoms. Feels better after medications. She does have a history of endometriosis and this could be the cause of her symptoms. She is about fci through her menstrual cycle. Potentially has ruptured an ovarian cyst. No indication for antibiotics. No indication for surgical consultation. Patient was given return precautions. She expressed understanding and agreement. Discharge Plan Departure Patient Disposition: Home Clinical Impression: Abdominal pain Instructions: DI for Abdominal Pain-Adult Activity Restrictions/Additional Instructions: Recommend you contact your primary doctor for a follow-up. Continue any medic ations as directed. Return to the emergency department for any new or worsening symptoms. Prescriptions: No Action meloxicam 15 mg tablet 15 mg PO DAILY sertraline 100 mg tablet 100 mg PO DAILY furosemide 20 mg tablet 20 mg PO DAILY albuterol sulfate 90 mcg/actuation HFA aerosol inhaler 2 puff inhalation Q4-6H PRN Flovent HFA 220 mcg/actuation HFA aerosol inhaler 1 puff inhalation BID potassium chloride 10 mEq capsule, extended release 10 meq PO DAILY Visit Report Forms: Patient Portal/API
--- NOTE | 2022-02-22 23:25 | DI.CT.S_ITS ---
PROCEDURE: CT ABDOMEN PELVIS W CON INDICATIONS: RLQ abd pain eval for appy TECHNIQUE: After the administration of IV contrast, axial sections were acquired from the lung bases to the pubic symphysis. Coronal and sagittal reformats were performed. For radiation dose reduction, the following was used: automated exposure control, adjustment of mA and/or kV according to patient size. COMPARISON: [facility], CT, CT ABDOMEN PELVIS WITH CONTRAST, 07/01/2020, 16:13. [facility], CT, CT ANGIO ABD AORTA RUNOFF, 07/04/2021, 18:40. FINDINGS: Image quality: Excellent. Lung bases: There is mild dependent atelectasis bilaterally are. Heart: Heart is normal in size. ABDOMEN: Liver: No mass lesion. Gallbladder: Within normal limits without calcified gallstones. Biliary ducts: No biliary ductal dilatation. Pancreas: Unremarkable. Spleen: Normal in size. Adrenal Glands: No adrenal nodules. Kidneys and Ureters: No hydronephrosis. Stomach and Bowel: Stomach, small bowel loops, and colon are normal in caliber and wall thickness. No evidence of appendicitis. There is colonic diverticulosis without acute diverticulitis. Peritoneum: There is a small amount of free fluid in the right hemipelvis which appears within physiologic limits. No free air. Ventral Wall: No hernia. Abdominal Nodes: No retroperitoneal or mesenteric adenopathy by size criteria. Vessels: Aorta and inferior vena cava are normal in size. PELVIS: Pelvic Organs: Unremarkable. Bladder: Unremarkable. Pelvic Nodes: No enlarged lymph nodes. Miscellaneous: No inguinal hernias are seen. Bones: Visualized osseous structures demonstrate no suspicious focal lesions. IMPRESSION: 1. No acute intra-abdominal abnormality. Specifically, no evidence of appendicitis. 2. Colonic diverticulosis without acute diverticulitis. 3. Small amount of free fluid in the right hemipelvis. If there is clinical suspicion for pelvic pathology, further evaluation may be obtained with a pelvic ultrasound. Dictated by: Kenneth Barahona M.D. on 02/23/2022 at 1:24 Approved by: Kenneth Barahona M.D. on 02/23/2022 at 1:29
[2022-02-22] MEDS: SODIUM CHLORIDE 0.9% 1,000 ML 1000 ML IV (23:42)
[2022-02-22] MEDS: ONDANSETRON 4 MG/2 ML INJ IV (23:42)
[2022-02-22] MEDS: MORPHINE 4 MG/ML INJ IV (23:43)
[2022-02-22 23:51] LABS: Add Manual Diff / Slide Review NO; Basophils Absolute Auto 100 /uL (0-100); Basophils Percent Auto 0.8 % (0-2); Eosinophils Absolute Auto 300 /uL (0-450); Eosinophils Percent Auto 3.6 % (2-4); Hematocrit 36.3 % (36-46); Hemoglobin 12.7 g/dL (12.0-16.0); Lymphocytes Absolute Auto 3200 /uL (1100-4500); Lymphocytes Percent Auto 33.5 % (25-40); Mean Corpuscular Hemoglobin 30.5 PG (26-34); Monocytes Absolute Auto 800 /uL (0-900); Monocytes Percent Auto 8.2 % (3-14); Neutrophils Absolute Auto 5100 /uL (1500-7000); Neutrophils Percent Auto 53.9 % (50-75); Platelet Count 299 X10^3/uL (150-400); Red Blood Cell Count 4.17 X10^6/uL (4.0-5.2); White Blood Cell Count 9.4 X10^3/uL (4.5-11.0)
[2022-02-23] VITALS: BP 129/81; PULSE 65; RESP 18; O2SAT 98
[2022-02-23 00:01] LABS: Alanine Aminotransferase 13 IU/L (<35); Albumin 3.9 g/dL (3.5-5.0); Albumin Globulin Ratio 1.2 (1.0-2.8); Alkaline Phosphatase 64 U/L (38-126); Aspartate Aminotransferase 22 IU/L (14-36); BUN Creatinine Ratio 16.9 (6-22); Bilirubin Total 0.2 mg/dL (0.2-1.3); Blood Urea Nitrogen 12 mg/dL (7-17); Calcium 8.9 mg/dL (8.4-10.2); Carbon Dioxide 25 mmol/L (22-32); Chloride 107 mmol/L (98-107); Estimated Glomerular Filt Rate > 60 mL/min (>60); Globulin 3.2 g/dL (1.7-4.1); Glucose 96 mg/dL (70-100); HEMOLYSIS < 15 (0-50); Lipase 55 U/L (23-300); Potassium 4.1 mmol/L (3.4-5.1); Sodium 138 mmol/L (137-145); Total Protein 7.1 g/dL (6.3-8.2)
[2022-02-23] MEDS: methylPREDNISolone 125 MG/2 ML VIAL IV (00:16)
[2022-02-23] MEDS: diphenhydrAMINE 50 MG/ML VIAL 25 MG IV (00:17)
[2022-02-23 00:30] VITALS: BP 118/66; PULSE 80; RESP 18; O2SAT 100
[2022-02-23 01:07] VITALS: BP 130/79; PULSE 76; RESP 18; O2SAT 100
[2022-02-23 01:30] VITALS: BP 119/69; PULSE 61; RESP 18; TEMP 36.7; O2SAT 99
== END 2022-02-23 01:53 | disposition home or self-care (01) ==
PROVIDERS: Emergency Provider Emergency Medicine
DX: R10.9 Unspecified abdominal pain (principal)
CPT/HCPCS: 36415; 74177; 80053; 81003; 81025; 83690; 85025; 96374; 96375; 99284; J1200; J2270; J2405; J2930; Q9967

== ENCOUNTER → 2022-10-16 13:32 | Outpatient (CLI) | payer OTHER, MEDICAID, SELFPAY ==
[2022-10-16 14:17] LABS: Influenza A - CEPHEID Flu A NEGATIVE (NEGATIVE); Influenza B - CEPHEID Flu B NEGATIVE (NEGATIVE); Respiratory Syncytial Virus Negative (Negative)
[2022-10-16 14:18] LABS: COVID-19 CEPHEID 4-PLEX PCR Negative (Negative)
== END ==
PROVIDERS: Visit Provider Nurse Practitioner Family
DX: R05.9 Cough, unspecified (principal); R52 Pain, unspecified; R68.83 Chills (without fever)
CPT/HCPCS: 0241U

== ENCOUNTER 2022-11-22 01:17 | Emergency (ER) | payer OTHER, MEDICAID, SELFPAY ==
[2022-11-22] VITALS (13 sets, daily range): BP systolic 111–135; BP diastolic 60–65; PULSE 72–116; RESP 16; O2SAT 97–100; BMI 37.4
--- NOTE | 2022-11-22 01:21 | ED_ITS ---
HPI - Seizure General Chief Complaint: Seizure Stated Complaint: Seizure Time Seen by Provider: 11/22/22 01:21 History of Present Illness HPI Narrative: Patient is a 27-year-old female with history of stress-induced seizures presenting today with multiple seizures. EMS witnessed full body on shaking behavior and she was given 5 mg of Versed. She was at the [employer] drinking alcohol she reports she had drinks. Edward reports multiple seizures. Related Data Home Medications Medication Instructions Recorded Confirmed albuterol sulfate 90 mcg/actuation 2 puff inhalation Q4-6H PRN 06/12/21 03/24/22 aerosol inhaler fluticasone propionate 220 1 puff inhalation BID 06/12/21 03/24/22 mcg/actuation HFA aerosol inhaler (Flovent HFA) furosemide 20 mg tablet 20 mg PO DAILY 06/12/21 03/24/22 meloxicam 15 mg tablet 15 mg PO DAILY 06/12/21 03/24/22 potassium chloride 10 mEq 10 meq PO DAILY 06/12/21 03/24/22 capsule,extended release sertraline 100 mg tablet 100 mg PO DAILY 06/12/21 03/24/22 Previous Rx's Medication Instructions Recorded mupirocin 2 % topical ointment 1 applic topical BID nasal 03/24/22 infection #22 grams benzonatate 100 mg capsule 100 mg PO BID PRN cough #20 caps 10/16/22 Allergies Allergy/AdvReac Type Severity Reaction Status Date / Time ciprofloxacin Allergy Severe Anaphylaxis Verified 03/24/22 16:40 Penicillins Allergy Severe anaphylaxis Verified 03/24/22 16:40 duloxetine AdvReac Severe neurologica Verified 03/24/22 16:40 l Review of Systems Review of Systems ROS Unobtainable: All systems reviewed & are unremarkable except as noted in HPI and below Patient History Medical History Eustachian tube dysfunction Social History Smoking Status: Current every day smoker Smoking Status: Current every day smoker tobacco type: cigarettes alcohol intake frequency: a few times a week Substance Use Type: does not use Exam Initial Vital Signs Initial Vital Signs: Vital Signs Pulse Rate 105 H 11/22/22 01:22 Respiratory Rate 16 11/22/22 01:22 Blood Pressure 135/65 11/22/22 01:22 Pulse Oximetry 98 11/22/22 01:22 Oxygen Delivery Method Room Air 11/22/22 01:22 GENERAL: Intoxicated 27-year-old female HEENT: Head atraumatic,EOMI, pupils reactive, face symmetric, [moist] mucous membranes CARDIOVASCULAR: Regular rate and rhythm without murmurs, rubs or gallops. RESPIRATORY: Breath sounds equal bilaterally, no wheezes rales or rhonchi. ABDOMEN: Soft, nontender. Normoactive bowel sounds all 4 quadrants. No guarding or rebound. EXTREMITIES: Normal range of motion, no clubbing or edema. Neurovascularly i ntact NEUROLOGICAL: Alert oriented to person slurred speech moving all extremities SKIN: Warm, dry, no laceration, no petechiae, no rashes or lesions. Course Orders Ordered: ED Orders 11/22/22 01:23 CT head/brain wo con Stat 11/22/22 02:08 CBC Auto Diff [Complete Blood Count AUTO DIFF] Stat CMP [Comprehensive Metabolic Panel] Stat ETOH [Ethanol (ETOH)] Stat Prolactin Stat Vital Signs Vital signs: Vital Signs - 8 hr 11/22/22 01:22 11/22/22 01:31 11/22/22 01:31 Pulse Rate 105 H 97 H Respiratory Rate 16 Blood Pressure 135/65 115/60 Pulse Oximetry 98 100 Oxygen Delivery Method Room Air 11/22/22 02:00 11/22/22 02:09 11/22/22 02:09 Pulse Rate 116 H 98 H Respiratory Rate Blood Pressure 115/62 Pulse Oximetry 99 100 Oxygen Delivery Method 11/22/22 02:30 11/22/22 03:00 11/22/22 03:30 Pulse Rate 90 81 82 Respiratory Rate Blood Pressure 116/60 Pulse Oximetry 100 98 97 Oxygen Delivery Method 11/22/22 04:00 11/22/22 04:30 11/22/22 05:00 Pulse Rate 80 78 73 Respiratory Rate Blood Pressure 115/61 Pulse Oximetry 97 98 99 Oxygen Delivery Method 11/22/22 05:30 11/22/22 05:55 11/22/22 05:56 Pulse Rate 72 78 Respiratory Rate Blood Pressure 111/60 Pulse Oximetry 99 98 Oxygen Delivery Method MDM - Seizure Lab Data 11/22/22 02:08 11/22/22 02:08 Labs: Lab Results 11/22/22 11/22/22 Range/Units 02:08 02:08 WBC 8.8 (4.5-11.0) X10^3/uL RBC 4.32 (4.0-5.2) X10^6/uL Hgb 13.0 (12.0-16.0) g/dL Hct 38.1 (36-46) % MCV 88.1 (80-100) fL MCH 30.1 (26-34) PG MCHC 34.2 (30-36) % RDW 12.7 (11.6-14.8) % Plt Count 308 (150-400) X10^3/uL Neut % (Auto) 79.0 H (50-75) % Lymph % (Auto) 14.4 L (25-40) % Graham % (Auto) 5.0 (3-14) % Eos % (Auto) 1.1 L (2-4) % Baso % (Auto) 0.5 (0-2) % Neut # (Auto) 7000 (9984-6899) /uL Lymph # (Auto) 1300 (8456-4965) /uL Graham # (Auto) 400 (0-900) /uL Eos # (Auto) 100 (0-450) /uL Baso # (Auto) 0 (0-100) /uL Sodium 133 L (137-145) mmol/L Potassium 3.4 (3.4-5.1) mmol/L Chloride 100 (98-107) mmol/L Carbon Dioxide 16 L (22-32) mmol/L BUN 8 (7-17) mg/dL Creatinine 0.60 (0.52-1.04) mg/dL Estimated GFR > 60 (>60) mL/min BUN/Creatinine Ratio 13.3 (6-22) Glucose 95 (70-100) mg/dL Calcium 8.3 L (8.4-10.2) mg/dL Total Bilirubin 0.3 (0.2-1.3) mg/dL AST 26 (14-36) IU/L ALT 23 (<35) IU/L Alkaline Phosphatase 66 (38-126) U/L Total Protein 7.7 (6.3-8.2) g/dL Albumin 4.2 (3.5-5.0) g/dL Globulin 3.5 (1.7-4.1) g/dL Albumin/Globulin Ratio 1.2 (1.0-2.8) Prolactin 65.7 H (3.0-18.6) ng/mL Ethyl Alcohol 163 H ( - 10) mg/dL Imaging Data CT scan - head: Radiologist's Impression: PROCEDURE:? CT HEAD/BRAIN WO CON ? INDICATIONS:? seizure ? TECHNIQUE:? Noncontrast 4.5 mm thick angled axial sections acquired from the foramen magnum to the vertex, with coronal and sagittal reformats.? For radiation dose reduction, the following was used:? automated exposure control, adjustment of mA and/or kV according to patient size.? ? COMPARISON:? None. ? FINDINGS:? Image quality:? Excellent.? ? CSF spaces:? Basal cisterns are patent.? No extra-axial fluid collections.? Ventricles are normal in size and shape.? ? Brain:? No intracranial hemorrhage, mass, or mass effect.? Tineo-white matter interface appears preserved.? ? Skull and face:? Calvarium and visualized facial bones are intact, without suspicious lesions.? ? Sinuses:? Visualized sinuses and mastoids are clear.? ? IMPRESSION:? ? 1. No acute intracranial abnormality. ? ? Dictated by: Kenneth Barahona M.D. on 11/22/2022 at 2:15 ? ? [facility] Narrative Medical decision making narrative: Patient 27-year-old female history of stress-induced seizures called to bedside for seizure. Abnormal seizure shaking quickly stops push herself up on the bed and was incidentally talking. Suspect pseudoseizures. Blood work is reviewed she is found to be intoxicated 163. Bicarb is 16 and prolactin is 65. Possibly she did have a seizure. However based on the activity that I witnessed and what EMS reports my suspicion is low. Other electrolytes and WBC within normal limits. Head CT did not show any abnormality 6:00 a.m.. Patient awake alert much better. She reports that she is been under a lot of stress she went drinking which she normally does not. He says that things have really been under control for a long time until tonight. At this time no reason to start antiepileptic medication. Discharge Plan Departure Patient Disposition: Home Clinical Impression: Psychogenic nonepileptic seizure Instructions: DI for Seizure (Not Epilepsy/Seizure Disorder) Activity Restrictions/Additional Instructions: *You have been diagnosed with nonepileptic seizures *What to do: At this time you can not drive until seen by neurology or for 6 months. I recommend no drinking alcohol. Please be sure to drink fluids today. *Continue to take medications as directed *Follow up with your primary care provider in 2-3 days or call [phone] *Return to ER if you should have recurrent seizure increased confusion or any new, worsening or concerning symptoms Prescriptions: No Action meloxicam 15 mg tablet 15 mg PO DAILY sertraline 100 mg tablet 100 mg PO DAILY furosemide 20 mg tablet 20 mg PO DAILY albuterol sulfate 90 mcg/actuation HFA aerosol inhaler 2 puff inhalation Q4-6H PRN Flovent HFA 220 mcg/actuation HFA aerosol inhaler 1 puff inhalation BID potassium chloride 10 mEq capsule, extended release 10 meq PO DAILY benzonatate 100 mg capsule 100 mg PO BID PRN (Reason: cough) Qty: 20 0RF mupirocin 2 % ointment 1 applic topical BID Qty: 22 0RF Referrals: Miscellaneous,Doctor, [Primary Care Provider] - Stand Alone Forms: Patient Portal/API
--- NOTE | 2022-11-22 01:23 | DI.CT.S_ITS ---
PROCEDURE: CT HEAD/BRAIN WO CON INDICATIONS: seizure TECHNIQUE: Noncontrast 4.5 mm thick angled axial sections acquired from the foramen magnum to the vertex, with coronal and sagittal reformats. For radiation dose reduction, the following was used: automated exposure control, adjustment of mA and/or kV according to patient size. COMPARISON: None. FINDINGS: Image quality: Excellent. CSF spaces: Basal cisterns are patent. No extra-axial fluid collections. Ventricles are normal in size and shape. Brain: No intracranial hemorrhage, mass, or mass effect. Tineo-white matter interface appears preserved. Skull and face: Calvarium and visualized facial bones are intact, without suspicious lesions. Sinuses: Visualized sinuses and mastoids are clear. IMPRESSION: 1. No acute intracranial abnormality. Dictated by: Kenneth Barahona M.D. on 11/22/2022 at 2:15 Approved by: Kenneth Barahona M.D. on 11/22/2022 at 2:16
[2022-11-22 02:57] LABS: Alanine Aminotransferase 23 IU/L (<35); Albumin 4.2 g/dL (3.5-5.0); Albumin Globulin Ratio 1.2 (1.0-2.8); Alkaline Phosphatase 66 U/L (38-126); Aspartate Aminotransferase 26 IU/L (14-36); BUN Creatinine Ratio 13.3 (6-22); Bilirubin Total 0.3 mg/dL (0.2-1.3); Blood Urea Nitrogen 8 mg/dL (7-17); Calcium 8.3 mg/dL (8.4-10.2); Carbon Dioxide 16 mmol/L (22-32); Chloride 100 mmol/L (98-107); Estimated Glomerular Filt Rate > 60 mL/min (>60); Ethanol (ETOH) 163 mg/dL; Globulin 3.5 g/dL (1.7-4.1); Glucose 95 mg/dL (70-100); HEMOLYSIS < 15 (0-50); Potassium 3.4 mmol/L (3.4-5.1); Sodium 133 mmol/L (137-145); Total Protein 7.7 g/dL (6.3-8.2)
[2022-11-22 02:58] LABS: Add Manual Diff / Slide Review NO; Basophils Absolute Auto 0 /uL (0-100); Basophils Percent Auto 0.5 % (0-2); Eosinophils Absolute Auto 100 /uL (0-450); Eosinophils Percent Auto 1.1 % (2-4); Hematocrit 38.1 % (36-46); Lymphocytes Absolute Auto 1300 /uL (1100-4500); Lymphocytes Percent Auto 14.4 % (25-40); Mean Corpuscular HGB Conc 34.2 % (30-36); Mean Corpuscular Hemoglobin 30.1 PG (26-34); Mean Corpuscular Volume 88.1 fL (80-100); Monocytes Absolute Auto 400 /uL (0-900); Neutrophils Absolute Auto 7000 /uL (1500-7000); Platelet Count 308 X10^3/uL (150-400); Red Blood Cell Count 4.32 X10^6/uL (4.0-5.2); Red Cell Distribution Width 12.7 % (11.6-14.8); White Blood Cell Count 8.8 X10^3/uL (4.5-11.0)
[2022-11-22 03:32] LABS: Prolactin 65.7 ng/mL (3.0-18.6)
== END 2022-11-22 06:49 | disposition home or self-care (01) ==
PROVIDERS: Emergency Provider Emergency Medicine
DX: F44.5 Conversion disorder with seizures or convulsions (principal)
CPT/HCPCS: 36415; 70450; 80053; 80320; 84146; 85025; 99283; 99284